=== PATIENT | female | born 1965 | race Caucasian/White ===

== ENCOUNTER → 2019-07-02 | Emergency (ER) | payer OTHER ==
[~2019-07-02] VITALS: Ht 180.3 cm; Wt 117.9 kg
[~2019-07-02] MED LIST: AMITRIPTYLINE H25 MG; AVALIDE 300-12.1 TAB; CATAFLAM50 MG; GABAPENTIN600 MG; JANUVIA100 MG; PROTONIX40 MG; SYNTHROID88 MCG
== END | disposition home or self-care (01) ==
LOC: ER 16:51
DX: K52.89 Other specified noninfective gastroenteritis and colitis (principal)

== ENCOUNTER 2022-03-31 16:36 | Emergency (ER) | payer OTHER ==
[~2022-03-31] VITALS: Ht 180.3 cm; Wt 108.9 kg
[2022-03-31] MEDS ORDERED: TOUJEO MAX300 UNIT/1 (17:03)
[2022-03-31] MEDS ORDERED: AVALIDE 300-121 EACH (17:04)
[2022-03-31] MEDS ORDERED: FENOFIBRATE50 MG (17:05)
[2022-03-31] MEDS ORDERED: TOPROL XL25 M1 (17:06)
[2022-03-31] MEDS ORDERED: JARDIANCE10 MG (17:06)
[2022-03-31] MEDS ORDERED: DOXEPIN HC10 MG/1 ML (17:06)
[2022-03-31] MEDS ORDERED: GLIMEPIRIDE4 MG (17:06)
[2022-03-31] MEDS ORDERED: DICLOFENAC SODI75 MG PO (19:33)
== END 2022-03-31 19:47 | disposition home or self-care (01) ==
LOC: ER 16:36
DX: M62.838 Other muscle spasm (principal); E11.9 Type 2 diabetes mellitus without complications; I10 Essential (primary) hypertension; Z79.4 Long term (current) use of insulin

== ENCOUNTER 2024-11-09 07:42 | Outpatient (CLI) | payer OTHER ==
[~2024-11-09 07:42] MED LIST changes: +AVALIDE 300-121 EACH; +DICLOFENAC SODI75 MG PO; +DOXEPIN HC10 MG/1 ML; +FENOFIBRATE50 MG; +GLIMEPIRIDE4 MG; +JARDIANCE10 MG; +TOPROL XL25 M1; +TOUJEO MAX300 UNIT/1
== END 2024-11-09 07:49 | disposition home or self-care (01) ==
LOC: RAD 07:42
DX: R05.9 Cough, unspecified (principal)